=== PATIENT | female | born 1935 | race Asian ===

== ENCOUNTER 2021-05-05 18:54 | Inpatient (IN) ==
[2021-05-06] MEDS ORDERED: polyethylene glycoL 3350 17 GM POWD.PACK PO PRN (15:42)
[2021-05-06] MEDS ORDERED: Cyanocobalamin (B-12) 1,000 MCG TABLET PO SCH (15:45)
[2021-05-06] MEDS ORDERED: rOPINIRole 0.25 MG TABLET PO SCH (21:00)
[2021-05-06] MEDS ORDERED: metroNIDAZOLE 500 MG TABLET PO SCH (21:00)
[2021-05-07] MEDS: *HR* OxyCODONE/APAP 5/325 TABLET PO PRN ×2 (00:32→20:14)
[2021-05-07 07:18] LABS: Basophils # 0.1 K/mcL (0.0-0.2); Basophils % 0.8 %; Eosinophils # 0.2 K/mcL (0.0-0.6); Eosinophils % 3.2 %; Hematocrit 25.5 % (35.3-44.9); Hemoglobin 8.4 g/dL (11.5-15.4); Immature Granulocytes % 1.1 % (0-4); Lymphocytes # 1.3 K/mcL (0.6-4.6); Lymphocytes % 20.5 %; Mean Corpuscular HGB Conc 32.9 g/dL (31.6-35.5); Mean Corpuscular Hemoglobin 31.5 pg (28.0-33.3); Mean Corpuscular Volume 95.5 fL (83.0-100.0); Mean Platelet Volume 8.7 fL (9.4-12.4); Monocytes # 0.7 K/mcL (0.0-1.3); Monocytes % 10.5 %; Platelet Count 491 K/mcL (140-400); Red Blood Count 2.67 M/mcL (3.82-4.97); Red Cell Distribution Width 15.9 % (11.5-14.5); Segmented Neutrophils % 63.9 %; White Blood Count 6.5 K/mcL (4.3-11.1)
[2021-05-07 07:41] LABS: Neutrophils # 4.2 K/mcL (1.6-8.9)
[2021-05-07 08:00] LABS: Alanine Aminotransferase 14 Units/L (7-52); Albumin 3.5 g/dL (3.5-5.7); Albumin/Globulin Ratio 1.2 (1.1-2.2); Alkaline Phosphatase 85 Units/L (34-104); Aspartate Amino Transferase 22 Units/L (13-39); BUN/Creatinine Ratio 24 (6-26); Bilirubin,Total 0.5 mg/dL (0.3-1.0); Blood Urea Nitrogen 17 mg/dL (8-23); Calcium 8.5 mg/dL (8.6-10.3); Carbon Dioxide 30 mEq/L (23-29); Chloride 100 mEq/L (98-107); Globulin 2.9 g/dL (2.4-3.5); Glucose 103 mg/dL (70-105); Osmolality,Calculated 282 (280-300); Potassium 4.2 mEq/L (3.5-5.1); Sodium 135 mEq/L (136-145); Total Protein 6.4 g/dL (6.4-8.9); eGFR For African Americans > 60 (> 60); eGFR For Non-African Americans > 60 (> 60)
[2021-05-07] MEDS: metroNIDAZOLE 500 MG TABLET PO SCH ×3 (08:38→20:14)
[2021-05-07] MEDS: Gabapentin 300 MG CAPSULE PO SCH (08:38)
[2021-05-07] MEDS: rOPINIRole 0.25 MG TABLET PO SCH (20:13)
[2021-05-08] MEDS: Gabapentin 300 MG CAPSULE PO SCH (08:46)
[2021-05-08] MEDS: metroNIDAZOLE 500 MG TABLET PO SCH ×3 (08:46→21:26)
[2021-05-08] MEDS: *HR* OxyCODONE/APAP 5/325 TABLET PO PRN (08:47)
[2021-05-08] MEDS: rOPINIRole 0.25 MG TABLET PO SCH (21:26)
[2021-05-08] MEDS ORDERED: Ondansetron ODT 4 MG TAB.RAPDIS SL PRN (23:08)
[2021-05-08] MEDS ORDERED: *HR* Promethazine 25 MG/ML VIAL IM ONE (23:25)
[2021-05-09] MEDS ORDERED: *HR* Promethazine 25 MG/ML VIAL IM ONE (04:26)
[2021-05-09] MEDS: metroNIDAZOLE 500 MG TABLET PO SCH ×3 (09:01→20:34)
[2021-05-09] MEDS: Gabapentin 300 MG CAPSULE PO SCH (09:01)
[2021-05-09] MEDS: *HR* OxyCODONE/APAP 5/325 TABLET PO PRN (09:09)
[2021-05-09] MEDS: rOPINIRole 0.25 MG TABLET PO SCH (20:34)
[2021-05-10] MEDS: metroNIDAZOLE 500 MG TABLET PO SCH ×3 (09:34→21:15)
[2021-05-10] MEDS: Gabapentin 300 MG CAPSULE PO SCH (09:34)
[2021-05-10] MEDS: Ondansetron ODT 4 MG TAB.RAPDIS SL PRN (12:42)
[2021-05-10] MEDS ORDERED: Prochlorperazine 10 MG/2 ML VIAL IM PRN (16:18)
[2021-05-10] MEDS: Sennosides/Docusate Sodium TABLET PO SCH (21:15)
[2021-05-10] MEDS: rOPINIRole 0.25 MG TABLET PO SCH (21:15)
[2021-05-11] MEDS: Gabapentin 300 MG CAPSULE PO SCH (08:48)
[2021-05-11] MEDS: Sennosides/Docusate Sodium TABLET PO SCH ×2 (08:49→20:21)
[2021-05-11] MEDS: metroNIDAZOLE 500 MG TABLET PO SCH ×3 (08:49→20:20)
[2021-05-11] MEDS ORDERED: Famotidine 20 MG TABLET PO SCH (10:45)
[2021-05-11] MEDS: [UNRECOGNIZED DRUG - OTHER] PO SCH (16:27)
[2021-05-11] MEDS: *HR* OxyCODONE/APAP 5/325 TABLET PO PRN (20:20)
[2021-05-11] MEDS: rOPINIRole 0.25 MG TABLET PO SCH (20:20)
[2021-05-12] MEDS: Gabapentin 300 MG CAPSULE PO SCH (08:12)
[2021-05-12] MEDS: Sennosides/Docusate Sodium TABLET PO SCH ×2 (08:12→20:57)
[2021-05-12] MEDS: [UNRECOGNIZED DRUG - OTHER] PO SCH (08:12)
[2021-05-12] MEDS: Ondansetron ODT 4 MG TAB.RAPDIS SL PRN (20:57)
[2021-05-12] MEDS: rOPINIRole 0.25 MG TABLET PO SCH (20:58)
[2021-05-13] MEDS: Sennosides/Docusate Sodium TABLET PO SCH ×2 (07:33→19:59)
[2021-05-13] MEDS: Gabapentin 300 MG CAPSULE PO SCH (07:33)
[2021-05-13] MEDS: [UNRECOGNIZED DRUG - OTHER] PO SCH (07:34)
[2021-05-13] MEDS: rOPINIRole 0.25 MG TABLET PO SCH (19:58)
[2021-05-13] MEDS: *HR* OxyCODONE/APAP 5/325 TABLET PO PRN (19:59)
[2021-05-13] MEDS: Ondansetron ODT 4 MG TAB.RAPDIS SL PRN (20:00)
[2021-05-13] MEDS: PROTONIX 40MG PO SCH (20:01)
[2021-05-14] MEDS: Sennosides/Docusate Sodium TABLET PO SCH ×2 (07:31→21:14)
[2021-05-14] MEDS: Gabapentin 300 MG CAPSULE PO SCH (07:32)
[2021-05-14] MEDS ORDERED: Artificial Tears SOLN 15 ML BOTTLE BOTH EYES PRN (08:30)
[2021-05-14] MEDS: rOPINIRole 0.25 MG TABLET PO SCH (21:14)
[2021-05-14] MEDS: PROTONIX 40MG PO SCH (21:15)
[2021-05-15 07:46] VITALS: BP 121/83; PULSE 86; RESP 18; TEMP 97.9; O2SAT 96
[2021-05-15] MEDS: Gabapentin 300 MG CAPSULE PO SCH (07:49)
[2021-05-15] MEDS: Sennosides/Docusate Sodium TABLET PO SCH (07:50)
[2021-05-15] MEDS ORDERED: Cyanocobalamin (B-12) 1,000 MCG/ML VIAL SQ ONE (11:13)
== END 2021-05-15 16:55 | disposition home health service (06) | DRG 949 ==
LOC: INPPIK 05-07 00:08
PROVIDERS: ADMIT Family Medicine; ATTEND Family Medicine

== ENCOUNTER 2021-12-24 09:35 | Observation (INO) ==
[2021-12-24] MEDS ORDERED: 0.9 % Sodium Chloride 1,000 ML IV ONE (09:44)
[2021-12-24 10:02] LABS: Bilirubin,Urine Negative (Negative); Blood,Urine Negative (Negative); Clarity,Urine Clear (Clear); Color,Urine Yellow (Yellow); Glucose,Urine (UA) Normal (Normal); Ketones,Urine Negative (Negative); Leukocyte Esterase,Urine Small (Negative); Nitrite,Urine Negative (Negative); PH,Urine 7.5 pH Units (5.0-8.0); Protein,Urine Negative (Neg-Trace); Specific Gravity,Urine 1.015 (1.010-1.025); Urobilinogen,Urine Normal (Normal)
[2021-12-24 10:10] LABS: WBC,Urine 0-3 per hpf (0-3)
[2021-12-24 10:13] LABS: Basophils % 0.5 %; Eosinophils # 0.2 K/mcL (0.0-0.6); Eosinophils % 3.9 %; Hematocrit 38.1 % (35.3-44.9); Hemoglobin 13.2 g/dL (11.5-15.4); Immature Granulocytes % 0.5 % (0-4); Lymphocytes # 1.4 K/mcL (0.6-4.6); Lymphocytes % 33.3 %; Mean Corpuscular HGB Conc 34.6 g/dL (31.6-35.5); Mean Corpuscular Hemoglobin 30.1 pg (28.0-33.3); Mean Platelet Volume 8.7 fL (9.4-12.4); Monocytes # 0.3 K/mcL (0.0-1.3); Monocytes % 6.2 %; Neutrophils # 2.4 K/mcL (1.6-8.9); Platelet Count 296 K/mcL (140-400); Red Blood Count 4.38 M/mcL (3.82-4.97); Red Cell Distribution Width 12.2 % (11.5-14.5); Segmented Neutrophils % 55.6 %; White Blood Count 4.3 K/mcL (4.3-11.1)
[2021-12-24 10:22] LABS: Prothrombin Time 11.1 Seconds (9.4-12.1)
[2021-12-24 10:24] LABS: Activated Partial Thrombo Time 32.6 Seconds (26.0-36.0)
[2021-12-24 10:30] LABS: Alanine Aminotransferase 14 Units/L (7-52); Albumin 4.6 g/dL (3.5-5.7); Albumin/Globulin Ratio 1.6 (1.1-2.2); Alkaline Phosphatase 67 Units/L (34-104); Aspartate Amino Transferase 25 Units/L (13-39); BUN/Creatinine Ratio 14 (6-26); Blood Urea Nitrogen 12 mg/dL (8-23); Calcium 9.7 mg/dL (8.6-10.3); Carbon Dioxide 28 mEq/L (23-29); Chloride 97 mEq/L (98-107); Globulin 2.8 g/dL (2.4-3.5); Glucose 110 mg/dL (70-105); Magnesium 1.9 mg/dL (1.6-2.6); Osmolality,Calculated 274 (280-300); Potassium 3.8 mEq/L (3.5-5.1); Sodium 132 mEq/L (136-145); Total Protein 7.4 g/dL (6.4-8.9); eGFR For African Americans > 60 (> 60); eGFR For Non-African Americans > 60 (> 60)
[2021-12-24 10:33] LABS: Troponin I < 0.03 ng/mL (< 0.04)
[2021-12-24] MEDS ORDERED: cefTRIAXone 1,000 MG in 0.9 % Sodium Chloride Mini Bag 100 ML IVPB ONE (11:26)
[2021-12-24] MEDS: 0.9 % Sodium Chloride 1,000 ML IVC SCH (11:44)
[2021-12-24] MEDS ORDERED: Naloxone 0.4 MG/ML INJ IVP PRN (12:46)
[2021-12-24] MEDS ORDERED: 0.9 % Sodium Chloride 1,000 ML IVC SCH (13:00)
[2021-12-24] MEDS ORDERED: Acetaminophen 325 MG TABLET PO PRN (15:50)
[2021-12-24] MEDS ORDERED: Ondansetron ODT 4 MG TAB.RAPDIS SL PRN (15:51)
[2021-12-24] MEDS ORDERED: lisinopriL 10 MG TABLET PO SCH (16:00)
[2021-12-24] MEDS: lisinopriL 10 MG TABLET PO SCH (16:20)
[2021-12-24] MEDS: Pantoprazole 40 MG VIAL IVP SCH (18:05)
[2021-12-24] MEDS: rOPINIRole 1 MG TABLET PO SCH (20:34)
[2021-12-24] MEDS ORDERED: Patient Taking Own Medication 1 EACH PO SCH (21:00)
[2021-12-24] MEDS: Melatonin 3 MG TABLET PO SCH (21:26)
[2021-12-24] MEDS: Gabapentin 300 MG CAPSULE PO SCH (21:26)
[2021-12-25] MEDS: 0.9 % Sodium Chloride 1,000 ML IVC SCH ×2 (01:12→11:53)
[2021-12-25 05:22] LABS: Basophils # 0.1 K/mcL (0.0-0.2); Basophils % 1.3 %; Eosinophils # 0.2 K/mcL (0.0-0.6); Hematocrit 36.3 % (35.3-44.9); Hemoglobin 11.8 g/dL (11.5-15.4); Immature Granulocytes % 0.3 % (0-4); Lymphocytes # 1.7 K/mcL (0.6-4.6); Lymphocytes % 41.5 %; Mean Corpuscular HGB Conc 32.5 g/dL (31.6-35.5); Mean Corpuscular Hemoglobin 30.5 pg (28.0-33.3); Mean Corpuscular Volume 93.8 fL (83.0-100.0); Mean Platelet Volume 9.3 fL (9.4-12.4); Monocytes # 0.3 K/mcL (0.0-1.3); Neutrophils # 1.8 K/mcL (1.6-8.9); Platelet Count 253 K/mcL (140-400); Red Blood Count 3.87 M/mcL (3.82-4.97); Red Cell Distribution Width 12.4 % (11.5-14.5); Segmented Neutrophils % 44.9 %
[2021-12-25 05:54] LABS: BUN/Creatinine Ratio 13 (6-26); Blood Urea Nitrogen 9 mg/dL (8-23); Calcium 8.8 mg/dL (8.6-10.3); Carbon Dioxide 27 mEq/L (23-29); Chloride 104 mEq/L (98-107); Glucose 95 mg/dL (70-105); Magnesium 1.9 mg/dL (1.6-2.6); Osmolality,Calculated 282 (280-300); Potassium 3.8 mEq/L (3.5-5.1); Sodium 137 mEq/L (136-145); eGFR For African Americans > 60 (> 60); eGFR For Non-African Americans > 60 (> 60)
[2021-12-25] MEDS: *HR* Enoxaparin 40 MG/0.4 ML SYRINGE SQ SCH (06:16)
[2021-12-25] MEDS ORDERED: Artificial Tears SOLN 15 ML BOTTLE BOTH EYES PRN (10:12)
[2021-12-25] MEDS: lisinopriL 10 MG TABLET PO SCH (11:00)
[2021-12-25] MEDS: Pantoprazole 40 MG VIAL IVP SCH (11:01)
[2021-12-25] MEDS ORDERED: Artificial Tears SOLN 15 ML BOTTLE BOTH EYES SCH (12:00)
[2021-12-25] MEDS: Gabapentin 300 MG CAPSULE PO SCH (20:47)
[2021-12-25] MEDS: rOPINIRole 1 MG TABLET PO SCH (20:48)
[2021-12-25] MEDS: Melatonin 3 MG TABLET PO SCH (20:49)
[2021-12-25] MEDS: Sennosides/Docusate Sodium TABLET PO PRN (20:53)
[2021-12-26] MEDS: 0.9 % Sodium Chloride 1,000 ML IVC SCH (02:44)
[2021-12-26] MEDS: *HR* Enoxaparin 40 MG/0.4 ML SYRINGE SQ SCH (05:21)
[2021-12-26 07:20] LABS: Basophils % 0.4 %; Eosinophils # 0.3 K/mcL (0.0-0.6); Eosinophils % 5.5 %; Hematocrit 33.3 % (35.3-44.9); Hemoglobin 11.1 g/dL (11.5-15.4); Immature Granulocytes % 0.2 % (0-4); Lymphocytes # 1.9 K/mcL (0.6-4.6); Lymphocytes % 39.3 %; Mean Corpuscular HGB Conc 33.3 g/dL (31.6-35.5); Mean Corpuscular Hemoglobin 29.8 pg (28.0-33.3); Mean Corpuscular Volume 89.5 fL (83.0-100.0); Mean Platelet Volume 8.8 fL (9.4-12.4); Monocytes # 0.4 K/mcL (0.0-1.3); Monocytes % 7.8 %; Neutrophils # 2.2 K/mcL (1.6-8.9); Platelet Count 220 K/mcL (140-400); Red Blood Count 3.72 M/mcL (3.82-4.97); Red Cell Distribution Width 12.1 % (11.5-14.5); Segmented Neutrophils % 46.8 %; White Blood Count 4.8 K/mcL (4.3-11.1)
[2021-12-26 07:32] VITALS: BP 176/76; PULSE 59; RESP 17; TEMP 98; O2SAT 99
[2021-12-26 07:37] LABS: BUN/Creatinine Ratio 11 (6-26); Blood Urea Nitrogen 8 mg/dL (8-23); Calcium 8.6 mg/dL (8.6-10.3); Carbon Dioxide 30 mEq/L (23-29); Chloride 107 mEq/L (98-107); Glucose 87 mg/dL (70-105); Osmolality,Calculated 288 (280-300); Potassium 3.9 mEq/L (3.5-5.1); Sodium 140 mEq/L (136-145); eGFR For African Americans > 60 (> 60); eGFR For Non-African Americans > 60 (> 60)
[2021-12-26] MEDS: lisinopriL 10 MG TABLET PO SCH (08:32)
[2021-12-26] MEDS: Sennosides/Docusate Sodium TABLET PO PRN (08:40)
[2021-12-26] MEDS: Pantoprazole 40 MG VIAL IVP SCH (08:41)
== END 2021-12-26 12:30 | disposition home or self-care (01) ==
LOC: EMEROOPIK 09:35 → INPPIK 09:35
PROVIDERS: ADMIT Internal Medicine; ATTEND Internal Medicine